=== PATIENT | male | born 1950 | race Caucasian/White ===

== ENCOUNTER → 2024-06-30 | Outpatient (CLI) | payer MEDICARE, SELFPAY ==
[2024-06-30 15:41] LABS: Ferritin 18 ng/mL (26-388)
[2024-06-30 15:51] LABS: Hepatitis B Surface Antibody Non-Reactive
[2024-07-02 07:08] LABS: HEPATITIS B SURFACE AG Negative (Negative); Hep C Antibodies Non Reactive (Non Reactive); Hepatitis A AB, Total Negative (Negative); Hepatitis A IgM Antibody Negative (Negative); Hepatitis B Core AB IgM Negative (Negative)
== END | disposition home or self-care (01) ==
LOC: MTLAB 11:35
PROVIDERS: Referring Provider Physician Assistant Medical; Visit Provider Physician Assistant Medical
DX: L30.9 Dermatitis, unspecified (principal); L60.9 Nail disorder, unspecified
CPT/HCPCS: 36415; 80074; 82728; 86706; 86708